=== PATIENT | male | born 1980 | race Caucasian/White ===

== ENCOUNTER → 2016-12-15 | Outpatient (CLI) | payer OTHER ==
[~2016-12-15] MED LIST: ATEN-173 PO; BCTROWC EXT; CHOL100041 PO; DICY20TA10 PO; ESCI10TA17 PO; LORA-741 PO; METHADONE LIQUID PO; OMEP20CA9 PO; ONDA4TAB65 PO; POLY335025 PO
[2016-12-15 17:55] LABS: URINE APPEARANCE CLEAR (CLEAR); URINE BILIRUBIN NEG (NEG); URINE COLOR YELLOW; URINE NITRITE NEG (NEG); URINE SPECIFIC GRAVITY 1.009 (1.000-1.030); UROBILINOGEN NEG (NEG)
[2016-12-15 17:56] LABS: MANUAL MICROSCOPIC REQUIRED? NO; REVIEW REQ? NO
== END | disposition home or self-care (01) ==
LOC: C.LABBFT 11:58
PROVIDERS: ATTEND Psychiatry & Neurology Psychiatry
DX: F90.9 Attention-deficit hyperactivity disorder, unspecified type (principal)

== ENCOUNTER → 2016-12-16 | Outpatient (CLI) | payer OTHER ==
[2016-12-16 17:46] LABS: BASO % 0.3 %; BASO ABS # 0.02 K/uL (0-0.2); COMPLETE YES; EOS % 2.2 %; HEMATOCRIT 45.5 % (42-52); IG% 0.2 %; LYMPH % 29.6 %; LYMPH ABS # 1.86 K/uL (1.2-3.4); MEAN CORPUSCULAR HEMOGLOBIN 30.2 pg (25-34); MEAN CORPUSCULAR HGB CONC 34.7 g/dl (32-36); MEAN PLATELET VOLUME 11.7 fL (7.4-10.4); MONO % 7.8 %; NEUT % 59.9 %; PLATELET COUNT 141 K/uL (130-400); RED BLOOD COUNT 5.23 M/uL (4.7-6.1); WHITE BLOOD COUNT 6.29 K/uL (4.8-10.8)
[2016-12-16 17:50] LABS: ALT/SGPT 24 U/L (12-78); AST/SGOT 22 U/L (15-37); BLOOD UREA NITROGEN 9 mg/dl (7-18); BUN/CREATININE RATIO 8.8 (10-20); CARBON DIOXIDE 26 mmol/L (21-32); CHLORIDE 106 mmol/L (98-107); CHOLESTEROL 189 mg/dl (0-200); CREATININE 0.98 mg/dl (0.60-1.40); GLUCOSE 77 mg/dl (70-99); POTASSIUM 4.1 mmol/L (3.5-5.1); SODIUM 139 mmol/L (136-145)
[2016-12-16 17:56] LABS: BENZODIAZEPINE, URINE NEG (NEG); COCAINE,URINE NEG (NEG); PHENCYCLIDINE, URINE NEG (NEG)
[2016-12-16 18:02] LABS: ALB/GLOB RATIO 1.1 (0.9-2); ALKALINE PHOSPHATASE 114 U/L (45-117); CHOLESTEROL/HDL RATIO 5.3; HDL CHOLESTEROL 36 mg/dl; LDL CHOLESTEROL CALCULATED 125 mg/dl; TRIGLYCERIDES 142 mg/dl (0-150); VERY LOW DENSITY LIPOPROT CALC 28 mg/dl
[2016-12-17 06:06] LABS: ESTIMATED AVERAGE GLUCOSE 94 mg/dl; HA1C FLAG Normal (Normal)
[2016-12-22 07:02] LABS: METHADONE METABOLITE 16600 NG/ML (CUTOFF=100); METHADONE VERIFIC 1700 NG/ML (CUTOFF=100)
--- NOTE | 2016-12-23 10:56 | CODING QUERY MEDICAL NECESSITY ---
SUPPORTING DIAGNOSIS NEEDED A supporting diagnosis is required for the test/procedure performed on this patient in order for us to be reimbursed by the patient's insurance. Please provide a supporting diagnosis for the following test/procedure listed below next to the test name along with your signature. *If there is no additional diagnosis for this patient that would support the following test/procedure please document that below next to the test/procedure. Test(s)/Procedure(s) that require a supporting diagnosis: * HEMOGLOBIN A1C DIAGNOSIS: Provider Signature: Date: Thank you Adilene Valladares [employer] Information Management Once completed, please kindly fax back to [phone] For questions please call [phone]
== END | disposition home or self-care (01) ==
LOC: C.LABBFT 11:46
PROVIDERS: ATTEND Psychiatry & Neurology Psychiatry
DX: F90.9 Attention-deficit hyperactivity disorder, unspecified type (principal)

== ENCOUNTER 2017-03-06 11:53 | Emergency (ER) | payer OTHER ==
[~2017-03-06] VITALS: Ht 165.1 cm; Wt 71.1 kg
[~2017-03-06 11:53] MED LIST changes: -METH10CO2 PO
[2017-03-06 12:00] VITALS: Ht 165.1 cm; Wt 71.1 kg
[2017-03-06] MEDS ORDERED: METH10CO2 PO (12:08)
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
[2017-03-06 12:40] LABS: BASO % 0.3 %; BASO ABS # 0.02 K/uL (0-0.2); EOS % 2.1 %; EOS ABS # 0.17 K/uL (0-0.5); HEMATOCRIT 37.7 % (42-52); HEMOGLOBIN 12.9 g/dL (14.0-18.0); IG# 0.02 K/uL (0.00-0.02); LYMPH % 19.5 %; LYMPH ABS # 1.55 K/uL (1.2-3.4); MEAN CELL VOLUME 87.1 fL (80-100); MEAN CORPUSCULAR HEMOGLOBIN 29.8 pg (25-34); MEAN CORPUSCULAR HGB CONC 34.2 g/dl (32-36); MONO % 6.3 %; NEUT % 71.5 %; NEUT ABS # 5.67 K/uL (1.4-6.5); PLATELET COUNT 144 K/uL (130-400); RED CELL DISTRIBUTION WIDTH CV 13.3 % (11.5-14.5); RED CELL DISTRIBUTION WIDTH SD 42.9 fL (36.4-46.3); WHITE BLOOD COUNT 7.93 K/uL (4.8-10.8)
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
[2017-03-06 12:56] LABS: ISTAT IONIZED CALCIUM 1.14 mmol/l (1.12-1.32); ISTAT SODIUM 144 mEq/L (135-144)
[2017-03-06 13:10] LABS: ALBUMIN 3.6 gm/dl (3.4-5.0); CALCIUM 8.6 mg/dl (8.5-10.1); CREATININE 1.02 mg/dl (0.60-1.40); TOTAL PROTEIN 6.5 gm/dl (6.4-8.2)
[2017-03-06 13:48] LABS: POTASSIUM 3.3 mmol/L (3.5-5.1)
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
[2017-03-06] MEDS ORDERED: FENTANYL CITRATE INJ 50 MCG/1 ML 2 ML VIAL ONE (14:53)
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
[2017-03-06] MEDS ORDERED: FENTANYL CITRATE INJ 50 MCG/1 ML 2 ML VIAL IV PRN (17:00)
[2017-03-06 17:31] VITALS: BP 129/86; PULSE 81; TEMP 36.6; O2SAT 95
== END 2017-03-06 17:15 | disposition short-term general hospital (02) ==
LOC: EDBD 11:53 → C.EDB 11:54
DX: S72.351A Displaced comminuted fracture of shaft of right femur, initial encounter for closed fracture (principal); S82.031A Displaced transverse fracture of right patella, initial encounter for closed fracture; S22.31XA Fracture of one rib, right side, initial encounter for closed fracture; V49.40XA Driver injured in collision with unspecified motor vehicles in traffic accident, initial encounter; M54.2 Cervicalgia; I10 Essential (primary) hypertension; F17.200 Nicotine dependence, unspecified, uncomplicated; R40.2412 Glasgow coma scale score 13-15, at arrival to emergency department; Z79.891 Long term (current) use of opiate analgesic; Z83.79 Family history of other diseases of the digestive system

== ENCOUNTER → 2017-03-06 | Outpatient (CLI) | payer OTHER ==
[~2017-03-06] MED LIST changes: +METH10CO2 PO
== END | disposition home or self-care (01) ==
LOC: C.LAB 13:06
DX: Z02.83 Encounter for blood-alcohol and blood-drug test (principal)

== ENCOUNTER 2021-05-15 10:51 | Inpatient (IN) ==
[2021-05-15] MEDS ORDERED: LORazepam 2 MG/1 ML VIAL IV STA ×2 (11:12→19:43)
--- NOTE | 2021-05-15 11:16 | Emergency Department Note ---
History of Present Illness General Chief complaint: Chest Pain Stated complaint: L SIDE CHEST PAIN, CAN'T GET GET FULL BREATH Time Seen by Provider: 05/15/21 11:00 History of Present Illness Maximum Pain Intensity: 7 40-year-old male presents to the ED with a chief complaint of sudden onset of a stabbing retrosternal chest pain that radiates to the left that occurred around 1030 this morning while he was sitting in a car. The patient states that it seemed to be worse if he would take a full breath. He states that it currently is dull in nature. Did not anything for the symptoms. States that he feels a little anxious. He is chronically on methadone. His aortic valve repair with a nonmetallic valve. Does not require anticoagulation. Home Medications Medication Instructions Recorded Confirmed Type aspirin 81 mg tablet,delayed 81 mg PO .ONCE 05/15/21 05/15/21 History release atenolol 25 mg tablet 12.5 mg PO QAM 05/15/21 05/15/21 History buspirone 10 mg tablet 10 mg PO TID 05/15/21 05/15/21 History escitalopram oxalate 20 mg tablet 20 mg PO HS 05/15/21 05/15/21 History ferrous sulfate 325 mg (65 mg 325 mg PO QAM 05/15/21 05/15/21 History iron) tablet (FeroSul) hydroxyzine HCl 25 mg tablet 25 mg PO TID 05/15/21 05/15/21 History promethazine 25 mg tablet 25 mg PO .ONCE 05/15/21 05/15/21 History quetiapine 100 mg tablet 100 mg PO BID 05/15/21 05/15/21 History quetiapine 25 mg tablet 25 mg PO BID 05/15/21 05/15/21 History Allergies Allergy/AdvReac Type Severity Reaction Status Date / Time codeine Allergy Severe SHORTNESS Verified 05/15/21 12:45 OF BREATH ketorolac Allergy Mild RAPID Verified 05/15/21 12:45 BREATHING morphine Allergy Mild FEELING Verified 05/15/21 12:45 ANXIOUS Iodinated Contrast Media Allergy Unknown RASH-CAN Verified 05/15/21 12:45 EAT SHELLFISH Past Med/Surg History Medical History Esophageal atresia Polysubstance abuse Surgical History Heart valve replaced History of esophageal surgery History of testicular surgery Social History Smoking Status: Current every day smoker Tobacco Type: Cigarettes Preferred Language: Citizen Of [place] Feels Safe at Home: Yes Review of Systems A total of 10 systems reviewed and were otherwise negative Physical Exam Vital Signs Vital Signs - 24 hr 05/15/21 10:54 05/15/21 11:10 05/15/21 11:55 Temperature 36.3 C L Temperature Source Temporal Artery Scan Pulse Rate 94 H Pulse Rate [Apical] 83 Respiratory Rate 16 18 Blood Pressure 145/88 H Blood Pressure [Right Arm] 138/99 Blood Pressure Mean 107 Blood Pressure Mean [Right Arm] 112 Pulse Oximetry 97 95 Oxygen Delivery Method Room Air Room Air Room Air Sepsis Recent Fever Within 48 Hours No Sepsis New/Unexplained Change in Mental Status No Sepsis Action Taken by Nursing No Action Required 05/15/21 13:00 Temperature Temperature Source Pulse Rate Pulse Rate [Apical] 85 Respiratory Rate 18 Blood Pressure Blood Pressure [Right Arm] 146/88 H Blood Pressure Mean Blood Pressure Mean [Right Arm] 107 Pulse Oximetry 95 Oxygen Delivery Method Room Air Sepsis Recent Fever Within 48 Hours Sepsis New/Unexplained Change in Mental Status Sepsis Action Taken by Nursing CONSTITUTIONAL/VITAL SIGNS: Reviewed / noted above. GENERAL: Non-toxic in appearance. INTEGUMENTARY: Warm, dry, and [place]. HEAD: Normocephalic. EYES: without scleral icterus or trauma. ENT/OROPHARYNX: clear and moist. LYMPHADENOPATHY/NECK: Is supple without lymphadenopathy or meningismus. RESPIRATORY: Clear to auscultation bilaterally. No increased work of breathing. CARDIOVASCULAR: Regular rate and rhythm. Sternal scar from previous surgery. Systolic ejection murmur. GI/ABDOMEN: Soft and nontender. No organomegaly or pulsatile mass. EXTREMITIES: Warm and well perfused. No calf tenderness. BACK: No CVA tenderness. NEUROLOGICAL: Intact without focal deficits. PSYCHIATRIC: normal affect. MUSCULOSKELETAL: Normally developed with good muscle tone. TRIAGE NURSING DOCUMENTATION REVIEWED. Course Administered Medications Discontinued Medications Lorazepam (Lorazepam 2 Mg/1 Ml Vial) 0.5 mg IV NOW STA Stop: 05/15/21 11:13 Last Admin: 05/15/21 11:25 Dose: 0.5 mg Documented by: [id number] Medical Decision Making Differential Diagnosis The differential that was considered includes acute myocardial infarction, acute coronary syndrome, myocarditis, pericarditis, pericardial effusions /tamponade, esophageal perforation, thoracic aortic dissection, pulmonary embolism, pneumonia, pneumothorax, pancreatitis, shingles, acute cholecystitis, perforated abdominal viscus. Medical Records Attestation: I reviewed the patient's medical records. Home Medications Current Medication List: was personally reviewed by me Laboratory Data Attestation: I reviewed the patient's lab results. Result diagrams: 05/15/21 11:09 05/15/21 11:09 Lab Results 05/15/21 05/15/21 Range/Units 11:09 11:09 WBC 7.65 (4.8-10.8) K/uL RBC 4.59 L (4.7-6.1) M/uL Hgb 14.6 (14.0-18.0) g/dL Hct 41.5 L (42-52) % MCV 90.4 (80-100) fL MCH 31.8 (25-34) pg MCHC 35.2 (32-36) g/dL RDW Std Deviation 42.9 (36.4-46.3) fL RDW Coeff of Cheri 12.9 (11.5-14.5) % Plt Count 134 (130-400) K/uL MPV 12.3 H (7.4-10.4) fL Immature Gran % (Auto) 0.1 % Neut % (Auto) 69.8 % Lymph % (Auto) 20.5 % [place] % (Auto) 7.7 % Eos % (Auto) 1.8 % Baso % (Auto) 0.1 % Neut # (Auto) 5.33 (1.4-6.5) K/uL Lymph # (Auto) 1.57 (1.2-3.4) K/uL [place] # (Auto) 0.59 (0.11-0.59) K/uL Eos # (Auto) 0.14 (0-0.5) K/uL Baso # (Auto) 0.01 (0-0.2) K/uL Immature Gran # (Auto) 0.01 (0.00-0.02) K/uL Sodium 140 (136-145) mmol/L Potassium 3.5 (3.5-5.1) mmol/L Chloride 105 (98-107) mmol/L Carbon Dioxide 29 (21-32) mmol/L Anion Gap 6 (3-11) BUN 5 L (6-23) mg/dl Creatinine 0.88 (0.6-1.4) mg/dl Est Cr Clr Drug Dosing 97.1 ml/min Est GFR ( Amer) 124.5 ml/min Est GFR (Non-Af Amer) 107.5 ml/min BUN/Creatinine Ratio 5.7 L (10-20) Glucose 97 (70-99(Fasting)) mg/dl Calcium 9.6 (8.5-10.1) mg/dl Total Bilirubin 0.9 (0.2-1.0) mg/dl AST 36 (13-39) U/L ALT 19 (7-52) U/L Alkaline Phosphatase 93 (34-104) U/L Troponin I < 0.03 (0-0.04) ng/ml Total Protein 7.7 (6.0-8.3) gm/dl Albumin 4.7 (3.4-5.0) gm/dl Globulin 3.0 (2.5-4.0) gm/dl Albumin/Globulin Ratio 1.6 (0.9-2) Lipase 74 (11-82) U/L Imaging Data Radiologist's Impression: Chest X-Ray 05/15/21 11:10 XR chest 1V portable CLINICAL HISTORY: Atypical chest pain TECHNIQUE: Single frontal radiograph of the chest was obtained. Comparison: Comparison is made to rib series 06/11/2019 FINDINGS: Median sternotomy wires are unchanged. The cardiomediastinal silhouette is normal. The lungs are clear. No evidence of pleural effusion or pneumothorax. IMPRESSION: No acute chest disease. ACT 112: Negative or not required by law. Electronically signed by: Branden Hart M.D. 05/15/2021 11:40 AM ECG Data Attestation: I personally reviewed and interpreted this ECG as follows: Additional Comments: Twelve-lead EKG: Per my interpretation shows a sinus rhythm at a rate of 82. T wave inversions in aVR and aVL. No ST elevation. No PVCs. No significant change from June 2020 MDM Narrative 40-year-old male presents with a sudden onset of sharp retrosternal chest pain that radiates to the left and was worse with breathing. No leg pain or calf tenderness or swelling in the legs. Now describes as a dull pressure. This occurred about 45 minutes to an hour prior to arrival while he was sitting in a car. Twelve-lead EKG shows a sinus rhythm and appears similar to previous EKG. Chest x-ray was negative for acute disease. CBC and chemistry panel was normal as well a troponin was negative. The patient was told the results. I did speak with Dr. Paula, patient's lithographic proofer, about the patient. He is going to talk to the hospitalist about bringing the patient in for a cardiac cath ayla tennille. The patient was given some IV Ativan here for anxiety. He does have a methadone dependency. Impression & Plan Retrosternal chest pain Discharge Plan Visit Data Chief Complaint: Chest Pain Stated Complaint: L SIDE CHEST PAIN, CAN'T GET GET FULL BREATH ED Provider: Anand Danielson Discharge Problem: Retrosternal chest pain Forms Stand Alone Forms: My [facility] Prescriptions Prescriptions: No Action quetiapine 25 mg tablet 25 mg PO BID RF: 0 atenolol 25 mg tablet 12.5 mg PO QAM RF: 0 aspirin [Aspir-81] 81 mg Tablet,Delayed Release (Dr/Ec) 81 mg PO .ONCE RF: 0 quetiapine 100 mg tablet 100 mg PO BID RF: 0 ferrous sulfate [FeroSul] 325 mg (65 mg iron) tablet 325 mg PO QAM RF: 0 buspirone 10 mg tablet 10 mg PO TID RF: 0 promethazine [Phenergan] 25 mg Tablet 25 mg PO .ONCE RF: 0 hydroxyzine HCl 25 mg tablet 25 mg PO TID RF: 0 escitalopram oxalate 20 mg tablet 20 mg PO HS RF: 0 Referrals Referrals: Janell De La Fuente DO [Primary Care Provider] -
[2021-05-15 11:17] LABS: Basophils # (auto) 0.01 K/uL (0-0.2); Basophils % (auto) 0.1 %; Eosinophils # (auto) 0.14 K/uL (0-0.5); Eosinophils % (auto) 1.8 %; Hematocrit (blood only) 41.5 % (42-52); Hemoglobin 14.6 g/dL (14.0-18.0); Immature Granulocytes # (auto) 0.01 K/uL (0.00-0.02); Immature Granulocytes % (auto) 0.1 %; Lymphocytes # (auto) 1.57 K/uL (1.2-3.4); Lymphocytes % (auto) 20.5 %; Mean Corpuscular Hemoglobin 31.8 pg (25-34); Mean Corpuscular Hgb Conc 35.2 g/dL (32-36); Mean Corpuscular Volume 90.4 fL (80-100); Mean Platelet Volume 12.3 fL (7.4-10.4); Monocytes # (auto) 0.59 K/uL (0.11-0.59); Monocytes % (auto) 7.7 %; Neutrophils # (auto) 5.33 K/uL (1.4-6.5); Neutrophils % (auto) 69.8 %; Platelet Count 134 K/uL (130-400); RDW Coefficient of Variation 12.9 % (11.5-14.5); RDW Standard Deviation 42.9 fL (36.4-46.3); Red Blood Count 4.59 M/uL (4.7-6.1); White Blood Count 7.65 K/uL (4.8-10.8)
--- NOTE | 2021-05-15 11:42 | XRay Report ---
XR chest 1V portable CLINICAL HISTORY: Atypical chest pain TECHNIQUE: Single frontal radiograph of the chest was obtained. Comparison: Comparison is made to rib series 06/11/2019 FINDINGS: Median sternotomy wires are unchanged. The cardiomediastinal silhouette is normal. The lungs are chevy r. No evidence of pleural effusion or pneumothorax. IMPRESSION: No acute chest disease. ACT 112: Negative or not required by law. Electronically signed by: Branden Hart M.D. 05/15/2021 11:40 AM
[2021-05-15 11:45] LABS: Alanine Aminotransferase 19 U/L (7-52); Albumin Globulin Ratio 1.6 (0.9-2); Albumin Level 4.7 gm/dl (3.4-5.0); Alkaline Phosphatase 93 U/L (34-104); Anion Gap 6 (3-11); Aspartate Aminotransferase 36 U/L (13-39); BUN Creatinine Ratio 5.7 (10-20); Bilirubin,Total 0.9 mg/dl (0.2-1.0); Blood Urea Nitrogen 5 mg/dl (6-23); Calcium 9.6 mg/dl (8.5-10.1); Carbon Dioxide 29 mmol/L (21-32); Chloride 105 mmol/L (98-107); Creatinine Clr Calc Pharmacy 97.1 ml/min; Est GFR (African American) 124.5 ml/min; Est GFR (Non-African American) 107.5 ml/min; Glucose 97 mg/dl (70-99(Fasting)); Lipase 74 U/L (11-82); Potassium 3.5 mmol/L (3.5-5.1); Sodium 140 mmol/L (136-145); Total Protein 7.7 gm/dl (6.0-8.3)
[2021-05-15 11:48] LABS: Troponin I < 0.03 ng/ml (0-0.04)
[2021-05-15] MEDS ORDERED: LORazepam 1 MG TAB PO STA (13:42)
--- NOTE | 2021-05-15 14:37 | Cardiology Consultation ---
Date of Consultation May 15, 2021 Assessment & Plan (1) Prosthetic aortic valve stenosis: (2) Contrast media allergy: (3) Opioid dependence: (1) Prosthetic aortic valve stenosis: Patient presents with progressive chest discomfort and shortness of breath, similar to the symptoms that prompted the recent diagnosis of severe prosthetic aortic valve stenosis, but more pronounced today. Patient does have a history of ascending aorta dilatation, with surgical repair at the time of his initial surgery in 2004, minimal residual dilatation noted at time of most recent CT in 2014. I do not think his symptoms are characteristic of an aortic dissection. Blood pressure only minimally elevated at 146/88. Patient was tentatively scheduled for diagnostic coronary angiography to be performed in 5 days, with planned outpatient CT surgery consultation to discuss surgical AVR soon thereafter. Patient to be admitted to telemetry service, will proceed with diagnostic coronary angiography tomorrow. (2) Contrast media allergy: History of rash with iodine contrast, therefore requires prophylaxis. Patient to receive prednisone 50 mg, x3 doses in advance of contrast administration. Plan for prednisone 50 mg this evening at 6 PM, 11 PM, 6 AM, with anticipation of procedure start time between 730 and 8:30 AM. Plan for diphenhydramine 25 mg, 6 AM tomorrow. (3) Opioid dependence: Continue outpatient treatment with Seroquel methadone as per outpatient regimen. Followed by [facility]. One-time dose of Ativan ordered at time of my evaluation of patient in the emergency room. History of Present Illness History of Present Illness Mr Cid is a 40-year-old male seen in cardiology consultation per the request of Dr. Danielson for the evaluation of chest discomfort. 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 He presents today complaining of onset of chest discomfort 1030 this morning with associated sensation of inability to catch his breath, he had had these symptoms recently, but this time the symptoms had persisted, prompting pr esentation to the emergency room. EKG reveals sinus rhythm, LVH, age-indeterminate septal infarction pattern, unchanged compared to his previous recent outpatient tracing, troponin negative x1. Patient assessed by the undersigned twice in the emergency room, and on the second occasion, still has mild ongoing discomfort. Problem List: 1.Status post redo AVR with a 21mm Trifecta bioprosthetic valve, pericardial closure with CorMatrix 07/20/14, [facility], Dr Mays 2.Status post bioprosthetic AVR and ascending aortic replacement for Severe of a bicuspid valve and ascending aortic enlargement in 2004 3.Chronic tobacco abuse-1/2 pack per day 4.Iodinated contrast reaction, rash, respiratory distress, nausea vomiting after CT in past 5.H/o narcotic addition, on chronic methadone 6.Angiographically normal coronary arteries, pre opcardiac catheterization, [facility], Dr Kam, 05/[address], 2014, maximum dimension ascending aorta 3.7 centimeter Allergies Allergy/AdvReac Type Severity Reaction Status Date / Time codeine Allergy Severe SHORTNESS Verified 05/15/21 12:45 OF BREATH ketorolac Allergy Mild RAPID Verified 05/15/21 12:45 BREATHING morphine Allergy Mild FEELING Verified 05/15/21 12:45 ANXIOUS Iodinated Contrast Media Allergy Unknown RASH-CAN Verified 05/15/21 12:45 EAT SHELLFISH Home Medications Medication Instructions Recorded Confirmed Type aspirin 81 mg tablet,delayed 81 mg PO .ONCE 05/15/21 05/15/21 History release atenolol 25 mg tablet 12.5 mg PO QAM 05/15/21 05/15/21 History buspirone 10 mg tablet 10 mg PO TID 05/15/21 05/15/21 History escitalopram oxalate 20 mg tablet 20 mg PO HS 05/15/21 05/15/21 History ferrous sulfate 325 mg (65 mg 325 mg PO QAM 05/15/21 05/15/21 History iron) tablet (FeroSul) hydroxyzine HCl 25 mg tablet 25 mg PO TID 05/15/21 05/15/21 History promethazine 25 mg tablet 25 mg PO .ONCE 05/15/21 05/15/21 History quetiapine 100 mg tablet 100 mg PO BID 05/15/21 05/15/21 History quetiapine 25 mg tablet 25 mg PO BID 05/15/21 05/15/21 History Patient History Medical History Esophageal atresia Polysubstance abuse Surgical History Heart valve replaced History of esophageal surgery History of testicular surgery Social History Smoking Status: Current every day smoker Tobacco Type: Cigarettes Preferred Language: [place] Feels Safe at Home: Yes Review of Systems Review of Systems: All systems reviewed & are unremarkable except as noted in HPI & below Physical Exam Constitutional: + thin Respiratory: normal respiratory effort, lungs clear to auscultation Cardiovascular: Rate/Rhythm: regular rhythm Heart Sounds: + murmur (3/6 systolic murmur, sternal border, lower sternal border) Gastrointestinal (Abdomen): normal bowel sounds, soft, nontender, no hepatosplenomegaly Neurologic: PERRL, EOMI, accommodation nl, no face palsy, no dysarthria Results & Data ([facility]) Vital Signs (Past 12 Hours) Vital Signs Temp Pulse Pulse Resp BP BP Pulse Ox 05/15/21 13:00 85 18 146/88 H 95 05/15/21 11:55 83 18 138/99 95 05/15/21 10:54 36.3 C L 94 H 16 145/88 H 97 Laboratory Results Cardiac Enzymes 05/15/21 Range/Units 11:09 AST 36 (13-39) U/L Troponin I < 0.03 (0-0.04) ng/ml CBC 05/15/21 Range/Units 11:09 WBC 7.65 (4.8-10.8) K/uL RBC 4.59 L (4.7-6.1) M/uL Hgb 14.6 (14.0-18.0) g/dL Hct 41.5 L (42-52) % Plt Count 134 (130-400) K/uL Neut # (Auto) 5.33 (1.4-6.5) K/uL Lymph # (Auto) 1.57 (1.2-3.4) K/uL [place] # (Auto) 0.59 (0.11-0.59) K/uL Eos # (Auto) 0.14 (0-0.5) K/uL Baso # (Auto) 0.01 (0-0.2) K/uL Comprehensive Metabolic Panel 05/15/21 Range/Units 11:09 Sodium 140 (136-145) mmol/L Potassium 3.5 (3.5-5.1) mmol/L Chloride 105 (98-107) mmol/L Carbon Dioxide 29 (21-32) mmol/L BUN 5 L (6-23) mg/dl Creatinine 0.88 (0.6-1.4) mg/dl Glucose 97 (70-99(Fasting)) mg/dl Calcium 9.6 (8.5-10.1) mg/dl AST 36 (13-39) U/L ALT 19 (7-52) U/L Alkaline Phosphatase 93 (34-104) U/L Total Protein 7.7 (6.0-8.3) gm/dl Albumin 4.7 (3.4-5.0) gm/dl Diagnostic Findings Summary of recent transthoracic echocardiogram performed at [facility] 05/01/2021: The left ventricular cavity size is normal. The LV wall thickness is severely increased (concentric). There is an aortic valve bioprosthetic present. Bioprosthetic leaflets in limited views seen appear significantly thickened and restricted in mobility. Prosthetic valve gradients are consistent with severe prosthetic stenosis with peak valve velocity of 4.7 m/sec. These findings represent progression from prior study of September 26, 2019 EKG performed 05/15/2021 at 10:59 AM and reviewed independently: Normal sinus rhythm 82 bpm, septal infarction, present dating back to 2013, nonspecific repolarization changes, stable EKG findings compared to prior.
--- NOTE | 2021-05-15 15:29 | History & Physical Report ---
Date of Service May 15, 2021 Assessment & Plan (1) Prosthetic aortic valve stenosis: (2) Retrosternal chest pain: (3) Contrast media allergy: Plan: Admitted telemetry Patient presenting from home with reports of midsternal chest pain. History of aortic valve stenosis s/p bioprosthetic replacement x2 in 2004 and 2014. 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 In the ED, patient received Ativan with improvement in his symptoms. EKG abnormal however unchanged from prior, initial troponin negative Was tentatively planned for outpatient preop cardiac catheterization in the next few days, cath will be moved to tomorrow Due to contrast dye allergy, prednisone and diphenhydramine ordered per cardiology recommendations (4) Opioid dependence: Plan: On methadone, dose confirmed with clinic ([facility]) (5) HTN (hypertension): Plan: Continue atenolol (6) DVT prophylaxis: Plan: SCDs History of Present Illness Chief Complaint: Chest Pain Primary Care Provider: [facility] 40 year old male with PMH bicuspid aortic valve s/p replacement x 2 (in 2004 and 2014), HTN, opioid abuse on methadone therapy, hx of esophageal atresia s/p repair as an infant, HTN, and other problems listed below who presents to the ED for evaluation of chest pain. 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 Patient states that he was sitting in his car this morning when he had sudden onset of a midsternal chest pain that radiated over to the left side of his chest. States that he was unable to take a deep breath. Patient reports episodes of chest pain in the past however not this severe. Patient denies lightheadedness, dizziness, diaphoresis, syncopal events. No abdominal pain, nausea, vomiting, diarrhea. Denies any other recent illnesses, fevers, chills. No urinary symptoms. In the ED, EKG is abnormal however unchanged from prior. Initial troponin is negative. Patient is hemodynamically stable. Patient received Ativan with improvement in his symptoms. Allergies Allergy/AdvReac Type Severity Reaction Status Date / Time codeine Allergy Severe SHORTNESS Verified 05/15/21 12:45 OF BREATH ketorolac Allergy Mild RAPID Verified 05/15/21 12:45 BREATHING morphine Allergy Mild FEELING Verified 05/15/21 12:45 ANXIOUS Iodinated Contrast Media Allergy Unknown RASH-CAN Verified 05/15/21 12:45 EAT SHELLFISH Home Medications Medication Instructions Recorded Confirmed Type atenolol 25 mg tablet 12.5 mg PO QAM 05/15/21 05/15/21 History buspirone 10 mg tablet 10 mg PO TID 05/15/21 05/15/21 History escitalopram oxalate 20 mg tablet 20 mg PO HS 05/15/21 05/15/21 History ferrous sulfate 325 mg (65 mg 325 mg PO QAM 05/15/21 05/15/21 History iron) tablet (FeroSul) hydroxyzine HCl 25 mg tablet 25 mg PO TID PRN 05/15/21 05/15/21 History methadone 5 mg/5 mL oral solution 59 mg PO DAILY 05/15/21 05/15/21 History multivitamin 1 tab PO DAILY 05/15/21 05/15/21 History omeprazole 20 mg capsule,delayed 20 mg PO BID 05/15/21 05/15/21 History release quetiapine 100 mg tablet 100 mg PO BID 05/15/21 05/15/21 History quetiapine 25 mg tablet 25 mg PO BID 05/15/21 05/15/21 History Past Med/Surg History Medical History Bicuspid aortic valve Contrast media allergy Esophageal atresia H. pylori infection HTN (hypertension) Polysubstance abuse hx of, on methadone Surgical History History of esophageal surgery History of testicular surgery S/P aortic valve replacement with bioprosthetic valve x 2 in 2004 and 2014 Family History Other Leukemia Social History Smoking Status: Current every day smoker Tobacco Type: Cigarettes Hx Alcohol Use: No Preferred Language: [place]an Feels Safe at Home: Yes Review of Systems Review of Systems: ROS per HPI, all other systems reviewed and negative Physical Exam Constitutional: WD/WN, vitals as above Eyes: PERRL, conjunctivae normal, anicteric sclerae ENMT: external ear and nose normal, oropharynx normal Respiratory: normal respiratory effort, lungs clear to auscultation Cardiovascular: Rate/Rhythm: regular rate and regular rhythm Heart Sounds: + murmur (Systolic, grade 5/6) Vessels: normal peripheral pulses Extremities: no edema Gastrointestinal (Abdomen): normal bowel sounds, soft, nontender, no hepatosplenomegaly Musculoskeletal: no cyanosis or clubbing, extremities motor strength 5/5 Skin: no rashes, warm and dry Neurologic: PERRL, EOMI, accommodation nl, no face palsy, no dysarthria Psychiatric: A+Ox3, euthymic affect Results & Data Results & Data ([facility]) Vital Signs (Past 12 Hours) Vital Signs Temp Pulse Pulse Resp BP BP Pulse Ox 05/15/21 15:00 83 12 115/96 96 05/15/21 13:00 85 18 146/88 H 95 05/15/21 11:55 83 18 138/99 95 05/15/21 10:54 36.3 C L 94 H 16 145/88 H 97 Laboratory Results Short CBC 05/15/21 Range/Units 11:09 WBC 7.65 (4.8-10.8) K/uL Hgb 14.6 (14.0-18.0) g/dL Hct 41.5 L (42-52) % Plt Count 134 (130-400) K/uL BMP 05/15/21 11:09 Sodium 140 Potassium 3.5 Chloride 105 Carbon Dioxide 29 BUN 5 L Creatinine 0.88 Glucose 97 Calcium 9.6 Cardiac Enzymes 05/15/21 Range/Units 11:09 Troponin I < 0.03 (0-0.04) ng/ml Liver Function 05/15/21 Range/Units 11:09 Total Bilirubin 0.9 (0.2-1.0) mg/dl AST 36 (13-39) U/L ALT 19 (7-52) U/L Alkaline Phosphatase 93 (34-104) U/L Albumin 4.7 (3.4-5.0) gm/dl Diagnostic Findings Chest X-Ray 05/15/21 11:10 XR chest 1V portable CLINICAL HISTORY: Atypical chest pain TECHNIQUE: Single frontal radiograph of the chest was obtained. Comparison: Comparison is made to rib series 06/11/2019 FINDINGS: Median sternotomy wires are unchanged. The cardiomediastinal silhouette is normal. The lungs are clear. No evidence of pleural effusion or pneumothorax. IMPRESSION: No acute chest disease. ACT 112: Negative or not required by law. Electronically signed by: Branden Hart M.D. 05/15/2021 11:40 AM Code Status & VTE Plan VTE Prophylaxis Plan VTE Prophylaxis will be ordered: Yes Supervising Physician Co-Signing Physician Notes Attending addendum: The patient was seen and examined in emergency room He has history of aortic valve stenosis s/p bioprosthetic replacement x2 in 2004 and 2014 Has been complaining of chest pain with occasional shortness of breath off and on Has had severe chest pain this morning without any evidence of ACS at pres entation Denies any acute symptoms during my examination On examination No apparent distress at rest Hemodynamically stable Chestclear to auscultate bilaterally HeartS1-S2, regular, 3/6 ESM over precordium, apex and aortic area Abdomenbenign Extremitiesno edema CNSalert, awake and oriented x3 His admission labs, EKG and imaging studies reviewed Has prosthetic aortic valve stenosis with ongoing chest pain Appreciate cardiology input and recommendation for cardiac cath tomorrow Agree with assessment and plan as outlined above by Mariah Silver
--- NOTE | 2021-05-15 17:00 | Electrocardiogram Report ---
Test Reason : Blood Pressure : / mmHG Vent. Rate : 082 BPM Atrial Rate : 082 BPM P-R Int : 156 ms QRS Dur : 094 ms QT Int : 408 ms P-R-T Axes : 071 -72 088 degrees QTc Int : 476 ms Poor data quality, interpretation may be adversely affected Normal sinus rhythm Possible Left atrial enlargement Left axis deviation Poor R wave progression, consider anterior OH vs. lead placement vs. LVH Abnormal ECG When compared with ECG of 01-JUL-2020 19:50, Non-specific change in ST segment in Anterior leads T wave inversion no longer evident in Anterior leads Confirmed by Abran Montejo ([id number]) on 05/15/2021 5:00:34 PM Referred By: REFERRED SELF Confirmed By:Eliazar Montejo
[2021-05-15] MEDS ORDERED: ACETAMINOPHEN 325 MG TAB PO PRN (18:19)
[2021-05-15] MEDS ORDERED: LORazepam 1 MG TAB PO PRN (18:19)
[2021-05-15] MEDS: predniSONE 50 MG TAB PO SCH (20:23)
[2021-05-15] MEDS: QUEtiapine FUMARATE 100 MG TABLET PO SCH (20:24)
[2021-05-15] MEDS: QUEtiapine FUMARATE 25 MG TABLET PO SCH (20:25)
[2021-05-15] MEDS: busPIRone 5 MG TAB PO SCH (20:26)
[2021-05-15] MEDS: PANTOprazole 40 MG TAB PO SCH (20:26)
[2021-05-15] MEDS ORDERED: ESCITALOPRAM OXALATE 20 MG TAB PO SCH (21:00)
[2021-05-15] MEDS ORDERED: predniSONE 50 MG TAB PO SCH (23:00)
[2021-05-16] MEDS: predniSONE 50 MG TAB PO SCH ×2 (00:31→06:48)
[2021-05-16] MEDS ORDERED: diphenhydrAMINE Capsule 25 MG CAP PO ONE (06:00)
[2021-05-16] MEDS ORDERED: MIDAZOLAM HCL 1 MG/ML 2ML VIAL ONE (06:44)
[2021-05-16] MEDS ORDERED: HEPARIN (PORCINE) 1000 UNIT/ML 10 ML (CATH LAB USE ONLY) ONE (06:44)
[2021-05-16] MEDS ORDERED: niCARdipine HCL INJ 2.5 MG/ML 10 ML AMP ONE (06:44)
[2021-05-16] MEDS ORDERED: fentaNYL citrate 100 MCG/2 ML VIAL ONE (06:45)
[2021-05-16] MEDS ORDERED: NITROGLYCERIN/D5W 100MCG/ML 20ML SYR ONE (06:46)
[2021-05-16] MEDS ORDERED: LIDOCAINE 1% LOCAL 20 ML VIAL ONE (06:46)
[2021-05-16 07:12] LABS: BUN Creatinine Ratio 9.3 (10-20); Calcium 9.4 mg/dl (8.5-10.1); Creatinine Clr Calc Pharmacy 92.2 ml/min; Est GFR (African American) 125.7 ml/min; Est GFR (Non-African American) 108.5 ml/min; Potassium 4.4 mmol/L (3.5-5.1)
[2021-05-16 07:25] LABS: Hematocrit (blood only) 39.2 % (42-52); Hemoglobin 13.9 g/dL (14.0-18.0); Mean Corpuscular Hemoglobin 31.8 pg (25-34); Mean Corpuscular Hgb Conc 35.5 g/dL (32-36); Mean Corpuscular Volume 89.7 fL (80-100); Platelet Count 127 K/uL (130-400); Platelet Estimate Decreased (Normal); RDW Coefficient of Variation 12.8 % (11.5-14.5); RDW Standard Deviation 42.1 fL (36.4-46.3); Red Blood Count 4.37 M/uL (4.7-6.1)
[2021-05-16] MEDS ORDERED: ASPIRIN CHEW 324 MG PO STA (07:36)
--- NOTE | 2021-05-16 07:36 | Pre Anesthesia Assessment ---
Date of Service May 16, 2021 Pre Sedation Assessment Vital Signs Temp Pulse Pulse Pulse Resp BP BP 05/16/21 07:15 98 H 16 102/82 05/16/21 03:02 36.8 C 92 H 18 107/72 05/15/21 23:45 94 H 05/15/21 23:22 36.7 C 99 H 19 114/73 05/15/21 19:38 82 132/86 05/15/21 18:23 36.5 C 74 81 21 114/79 05/15/21 18:04 79 18 137/96 05/15/21 15:00 83 12 115/96 05/15/21 13:00 85 18 146/88 H 05/15/21 11:55 83 18 138/99 05/15/21 10:54 36.3 C L 94 H 16 145/88 H Pulse Ox 05/16/21 07:15 96 05/16/21 03:02 94 05/15/21 23:45 05/15/21 23:22 96 05/15/21 19:38 96 05/15/21 18:23 98 05/15/21 18:04 96 05/15/21 15:00 96 05/15/21 13:00 95 05/15/21 11:55 95 05/15/21 10:54 97 Cardiovascular + regular rate and + regular rhythm + S1 normal and + murmur (3/6 mid to late peaking systolic murmur); no S2 normal (diminished) + femoral pulses present and + radial pulses present; no JVD and no carotid bruit no edema Respiratory + respiratory effort normal; no respiratory distress + clear to auscultation bilaterally; no crackles, no rales, no rhonchi and no wheezes Pre-Sedation Airway Assessment Smoking Status: Current every day smoker Hx Sleep Apnea: No Short, Thick Neck: No Thyromental Distance: > or= 3.5 Finger Breadths Oral Cavity: + WNL Mallampati Class: III ASA: ASA3 NPO Status Date of Last Intake of Fluids: 05/16/21 Time of Last Intake of Fluids: 00:00 Date of Last Intake of Solid Food: 05/16/21 Time of Last Intake of Solid Foods: 00:00 Procedure Planning Contraindications for Sedation: none Current Medications Reviewed: Yes Notes The planned sedation has been discussed with the patient. Informed Consent was obtained. I have identified the patient, determined the appropriateness of sedation and have assessed the patient immediately prior to the procedure. All medicine(s) and interventions are by my order.
[2021-05-16] MEDS ORDERED: ASPIRIN 81 MG CHEW ONE (07:47)
[2021-05-16] MEDS ORDERED: FAMOTIDINE 20MG/5ML IV PUSH IV ONE (07:53)
--- NOTE | 2021-05-16 08:33 | Post Anesthesia Assessment ---
Date of Service May 16, 2021 Post Sedation Assessment Vital Signs Temp Pulse Pulse Pulse Resp BP BP 05/16/21 07:15 98 H 16 102/82 05/16/21 03:02 36.8 C 92 H 18 107/72 05/15/21 23:45 94 H 05/15/21 23:22 36.7 C 99 H 19 114/73 05/15/21 19:38 82 132/86 05/15/21 18:23 36.5 C 74 81 21 114/79 05/15/21 18:04 79 18 137/96 05/15/21 15:00 83 12 115/96 05/15/21 13:00 85 18 146/88 H 05/15/21 11:55 83 18 138/99 05/15/21 10:54 36.3 C L 94 H 16 145/88 H Pulse Ox 05/16/21 07:15 96 05/16/21 03:02 94 05/15/21 23:45 05/15/21 23:22 96 05/15/21 19:38 96 05/15/21 18:23 98 05/15/21 18:04 96 05/15/21 15:00 96 05/15/21 13:00 95 05/15/21 11:55 95 05/15/21 10:54 97 Recovery Score Activity: Moves 4 extremities Respiration: Deep Breath/Cough Circulation: +/-20% PreAnes Value Consciousness: Fully Awake Oxygen Saturation: > 92% On Room Air Discharge Sedation Level of Care: Phase I Post Sedation Plan On clinical assessment, the patient appears to have tolerated the sedation without complications. Patient is recovering as anticipated. Patient will continue to be monitored by nursing and may be discharged when sedation discharge criteria are met per below protocol. Upon Completions of procedure up to 15 minutes continue every 5 minute vital signs and the P.A.R. score; then discharge to a Phase I or Fast Track to Phase II per the following guidelines: * Discharge Patient to appropriate Phase II area if PAR is 8 or greater or return to pre- procedure baseline. The post - procedure orders will be as directed. * If PAR score is less than 8 or not return to pre-procedure baseline then patient will follow Phase I monitoring till PAR is reached for Phase II. The Phase I may be done in procedure room or may call to secure a Phase I area. * If naloxone or flumazenil are used for reversal, hold in Phase I for continued monitoring from when last reversal dose was given for a minimum of 60 minutes or longer pending the nurse and/or physician discretion of patient condition before discharge to Phase II. Please call the Sedation Physician to re-evaluate and complete post-note for discharge to Phase II area. Do NOT discharge from procedure sedation or Phase 1 until post- sedation evaluation note is complete by procedure /sedation MD Sedation Discharge Instructions to be given to the patient at discharge to home.
--- NOTE | 2021-05-16 08:34 | Cardiac Catheterization ---
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 Normal coronary arteries. Hemodynamics Rest Ao:: 91/67/92 Final Ao: 104/73/91 LV: N/A Recommendations Recommendations: Valve Replacement Specimens Specimens: None Radiation Exposure (mGy) 338 Contrast (mls) 50 Fluids (cc crystalloids) Fluids (cc crystalloids): 90 Nss Drains Drains: n/a Anesthesia Moderate sedation. Start 0808. End 0830. Sedation monitor: Lose RN Procedural Complication(s) None I attest to the content of the Intraoperative Record and any orders documented therein. Any exceptions are noted below. [facility] Data: Wood Turner Cardiac Status Clinical evaluation leading to the procedure 40-year-old patient with severe bioprosthetic aortic valve stenosis presents for cardiac catheterization prior to redo aortic valve replacement. CAD Presenation: Stable angina Imaging Studies Past 6 Months: No Coronary Anatomy Dominant: Left Left Main (% Stenosis): Normal LAD (% Stenosis): Normal D1 (% Stenosis): Normal D2 (% Stenosis): Normal Circumflex (% Stenosis): Normal OM1 (% Stenosis): Normal OM2 (% Stenosis): Normal OM3 (% Stenosis): Normal (Large vessel with ostial bifurcation) L PL1 (% Stenosis): Normal L PL2 (% Stenosis): Normal (Small vessel) L PDA (% Stenosis): Normal RCA (% Stenosis): Normal (Small nondominant vessel, subselective injection due to ostial vasospasm with 5 Belgian catheter.) Diagnostic Physicians Name: Nhan Greenberg DO Closure Device Percutaneous Entry Location: Radial Closure Device: Radial Band Recommendations: Valve Replacement Intraprocedure Events Significant Disection: No Perforation: No
[2021-05-16] MEDS ORDERED: FERROUS SULFATE 325 MG TAB PO SCH (09:00)
[2021-05-16] MEDS ORDERED: PATIENT'S OWN CONTROLLED MED 1 PO SCH (09:00)
[2021-05-16] MEDS ORDERED: METHADONE ORAL SOLN 2 MG/ML PO SCH ×2 (09:00)
[2021-05-16] MEDS ORDERED: ATENOLOL 25 MG TABLET PO SCH (09:00)
[2021-05-16] MEDS: busPIRone 5 MG TAB PO SCH (09:16)
[2021-05-16] MEDS: QUEtiapine FUMARATE 25 MG TABLET PO SCH (09:16)
[2021-05-16] MEDS: QUEtiapine FUMARATE 100 MG TABLET PO SCH (09:16)
--- NOTE | 2021-05-16 11:07 | Cardiology Progress Note ---
Date of Service May 16, 2021 Assessment & Plan (1) Prosthetic aortic valve stenosis: (2) Contrast media allergy: (3) Opioid dependence: Plan: (1) Prosthetic aortic valve stenosis: Chest pain improved, hemodynamically stable. Patient with some degree of anxiety, related to his recent diagnosis of recurrent aortic valve stenosis. Cardiac catheterization revealed angiographically normal coronary arteries. After patient completes the planned cardiac catheterization recovery interval for radial artery access, he is stable for discharge. Patient is to keep the tentative appointment on 05/19/2021 at [facility] for a gated CT of the chest for visualization of the thoracic aorta. This is a noncontrast study given his history of contrast allergy. We will perform the study at [facility], as EKG gating allows for better visualization of the aortic root. Patient has already had his teeth removed prior to his previous aortic valve surgery, so he does not need to see a dental professional in advance of CT surgery consultation. I called Dr. Potter of [facility] [place] surgery yesterday and discussed pt's case. CT surgery office to reach out to patient to schedule upcoming outpatient consultation. Patient stable for discharge and was prior to hospital medication. (2) Contrast media allergy: Patient received appropriate prophylaxis with prednisone and Benadryl. Tolerated procedure well. (3) Opioid dependence: Continue outpatient treatment with buspirone, Lexapro, Seroquel, and methadone as per outpatient regimen. Followed by [facility]. Admission and Anticipated Discharge Date Admission Date: May 15, 2021 Subjective Patient seen in cardiology follow-up post procedure. Cardiac catheterization went well, angiographically normal coronary arteries. Patient tolerated the procedure well. He is eager for discharge. Physical Exam Constitutional: WD/WN, vitals as above Respiratory: normal respiratory effort, lungs clear to auscultation Cardiovascular: Rate/Rhythm: regular rate and regular rhythm Heart Sounds: + murmur (2/6 systolic murmur) Extremities: no edema Gastrointestinal (Abdomen): normal bowel sounds, soft, nontender, no hepatosplenomegaly Neurologic: PERRL, EOMI, accommodation nl, no face palsy, no dysarthria Results & Data ([facility]) Vital Signs (Past 12 Hours) Vital Signs Temp Pulse Pulse Pulse Resp BP Pulse Ox 05/16/21 09:29 36.6 C 88 18 118/80 96 05/16/21 09:14 36.6 C 92 H 19 106/73 96 05/16/21 08:50 96 H 20 123/74 96 05/16/21 08:35 94 H 20 114/83 96 05/16/21 07:15 98 H 16 102/82 96 05/16/21 03:02 36.8 C 92 H 18 107/72 94 05/15/21 23:45 94 H 05/15/21 23:22 36.7 C 99 H 19 114/73 96 Laboratory Results Cardiac Enzymes 05/15/21 05/15/21 05/16/21 Range/Units 11:09 18:39 00:31 AST 36 (13-39) U/L Troponin I < 0.03 < 0.03 < 0.03 (0-0.04) ng/ml CBC 05/15/21 05/16/21 Range/Units 11:09 05:57 WBC 7.65 4.70 L (4.8-10.8) K/uL RBC 4.59 L 4.37 L (4.7-6.1) M/uL Hgb 14.6 13.9 L (14.0-18.0) g/dL Hct 41.5 L 39.2 L (42-52) % Plt Count 134 127 L (130-400) K/uL Neut # (Auto) 5.33 (1.4-6.5) K/uL Lymph # (Auto) 1.57 (1.2-3.4) K/uL [place]lin # (Auto) 0.59 (0.11-0.59) K/uL Eos # (Auto) 0.14 (0-0.5) K/uL Baso # (Auto) 0.01 (0-0.2) K/uL Comprehensive Metabolic Panel 05/15/21 05/16/21 Range/Units 11:09 05:57 Sodium 140 139 (136-145) mmol/L Potassium 3.5 4.4 D (3.5-5.1) mmol/L Chloride 105 108 H (98-107) mmol/L Carbon Dioxide 29 26 (21-32) mmol/L BUN 5 L 8 (6-23) mg/dl Creatinine 0.88 0.86 (0.6-1.4) mg/dl Glucose 97 141 H (70-99(Fasting)) mg/dl Calcium 9.6 9.4 (8.5-10.1) mg/dl AST 36 (13-39) U/L ALT 19 (7-52) U/L Alkaline Phosphatase 93 (34-104) U/L Total Protein 7.7 (6.0-8.3) gm/dl Albumin 4.7 (3.4-5.0) gm/dl
[2021-05-16] MEDS: PANTOprazole 40 MG TAB PO SCH (11:27)
--- NOTE | 2021-05-16 12:09 | Discharge Summary ---
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 Patient states that he was sitting in his car this morning when he had sudden onset of a midsternal chest pain that radiated over to the left side of his chest. States that he was unable to take a deep breath. Patient reports episodes of chest pain in the past however not this severe. Patient denies lightheadedness, dizziness, diaphoresis, syncopal events. No abdominal pain, nausea, vomiting, diarrhea. Denies any other recent illnesses, fevers, chills. No urinary symptoms. In the ED, EKG is abnormal however unchanged from prior. Initial troponin is negative. Patient is hemodynamically stable. Patient received Ativan with improvement in his symptoms. Admission Exam Per Admitting Provider Constitutional: WD/WN, vitals as above Eyes: PERRL, conjunctivae normal, anicteric sclerae ENMT: external ear and nose normal, oropharynx normal Respiratory: normal respiratory effort, lungs clear to auscultation Cardiovascular: Rate/Rhythm: regular rate and regular rhythm Heart Sounds: + murmur (Systolic, grade 5/6) Vessels: normal peripheral pulses Extremities: no edema Gastrointestinal (Abdomen): normal bowel sounds, soft, nontender, no hepatosplenomegaly Musculoskeletal: no cyanosis or clubbing, extremities motor strength 5/5 Skin: no rashes, warm and dry B Neurologic: PERRL, EOMI, accommodation nl, no face palsy, no dysarthria Psychiatric: A+Ox3, euthymic affect Principal Diagnosis Chest pain Prosthetic aortic valve stenosis: Contrast media allergy: Opioid dependence: Discharge Exam General- No acute distress Head- atraumatic Eyes- PERRL, EOMI, ENT- oropharynx clear Neck- supple, no JVD Lungs- clear to auscultation Heart- regular rhythm; + murmur (Systolic, grade 5/6) Vessels: normal peripheral pulses Extremities: no edema Abdomen- normal bowel sounds, soft, nontender Extremities- no calf tenderness Neuro- alert, oriented x 3; PERRL, EOMI; no facial palsy; no dysarthria Skin- warm & dry Discharge Data Allergies Allergy/AdvReac Type Severity Reaction Status Date / Time codeine Allergy Severe SHORTNESS Verified 05/15/21 12:45 OF BREATH ketorolac Allergy Mild RAPID Verified 05/15/21 12:45 BREATHING morphine Allergy Mild FEELING Verified 05/15/21 12:45 ANXIOUS Iodinated Contrast Media Allergy Unknown RASH-CAN Verified 05/15/21 12:45 EAT SHELLFISH Consultations 05/15/21 18:19 Consult Cardiology Routine Procedures Performed Operation Date: 05/16/21 07:30 Actual Procedures p Cath, Coronaries ONLY (no LV) - Nhan Greenberg DO s Cineradiography w/Routine Exam - Nhan Greenberg DO Ordered Studies 05/16/21 06:28 CL Cath Imgs for PACS use only Routine XR chest 1V portable CLINICAL HISTORY: Atypical chest pain TECHNIQUE: Single frontal radiograph of the chest was obtained. Comparison: Comparison is made to rib series 06/11/2019 FINDINGS: Median sternotomy wires are unchanged. The cardiomediastinal silhouette is normal. The lungs are clear. No evidence of pleural effusion or pneumothorax. IMPRESSION: No acute chest disease. ACT 112: Negative or not required by law. Electronically signed by: Branden Hart M.D. 05/15/2021 11:40 AM Dictated:05/15/21 1137 Transcribed: 05/15/21 1137 Cardiac Cath Procedure Full Procedure Date May 16, 2021 Pre-Procedure Diagnosis Pre-Procedure Diagnosis: Valvular Disease (History of bicuspid aortic valve with severe bioprosthetic aortic valve stenosis) AUC Score AUC Score: 7 Post-Procedure Diagnosis Post-Procedure Diagnosis: Normal Coronary Arteries Procedure(s) Performed Procedure(s) Performed: Coronary Angiography Regional Extension Service Specialist Nhan Greenberg DO Float Remover(s) Lab Nurse LIFE SKILLS EDUCATOR Estimated Blood Loss Estimated Blood Loss: 5cc Medication(s) Medication(s): Fentanyl, Heparin, Lidocaine 1%, Nicardipine, Nitroglycerin and Versed Summary of Findings Left dominant coronary anatomy. Normal coronary arteries. Hemodynamics Rest Ao:: 91/67/92 Final Ao: 104/73/91 LV: N/A Recommendations Recommendations: Valve Replacement Specimens Specimens: None Radiation Exposure (mGy) 338 Contrast (mls) 50 Fluids (cc crystalloids) Fluids (cc crystalloids): 90 Nss Drains Drains: n/a Anesthesia Moderate sedation. Start 0808. End 0830. Sedation monitor: Eugene RN Procedural Complication(s) None I attest to the content of the Intraoperative Record and any orders documented therein. Any exceptions are noted below. [facility] Data: Store Coordinator Cardiac Status Clinical evaluation leading to the procedure 40-year-old patient with severe bioprosthetic aortic valve stenosis presents for cardiac catheterization prior to redo aortic valve replacement. CAD Presenation: Stable angina Imaging Studies Past 6 Months: No Coronary Anatomy Dominant: Left Left Main (% Stenosis): Normal LAD (% Stenosis): Normal D1 (% Stenosis): Normal D2 (% Stenosis): Normal Circumflex (% Stenosis): Normal OM1 (% Stenosis): Normal OM2 (% Stenosis): Normal OM3 (% Stenosis): Normal (Large vessel with ostial bifurcation) L PL1 (% Stenosis): Normal L PL2 (% Stenosis): Normal (Small vessel) L PDA (% Stenosis): Normal RCA (% Stenosis): Normal (Small nondominant vessel, subselective injection due to ostial vasospasm with 5 Frisian catheter.) Diagnostic Physicians Name: Nhan Greenberg DO Closure Device Percutaneous Entry Location: Radial Closure Device: Radial Band Recommendations: Valve Replacement Intraprocedure Events Significant Disection: No Perforation: No Created/Dictated:05/16/21832 Transcribed: 05/16/21832 Hospital Course (1) Retrosternal chest pain: (2) Contrast media allergy: Patient presenting from home with reports of midsternal chest pain. History of aortic valve stenosis s/p bioprosthetic replacement x2 in 2004 and 2014. 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 In the ED, patient received Ativan with improvement in his symptoms. EKG abnormal however unchanged from prior, initial troponin negative Was tentatively planned for outpatient preop cardiac catheterization in the next few days, but cath done during this admission Due to contrast dye allergy, prednisone and diphenhydramine ordered per cardiology recommendations S/P cath today showed Normal coronary arteries. Ok from cardiology to proceed with valve replacement Stable from cardiology standpoint to discharge home today (3) Prosthetic aortic valve stenosis: Follow up with CT surgeon Plan for CT chest on 05/19/21 at [facility] for a gated CT of the chest for visualization of the thoracic aorta. Ok from cardiology to proceed with valve replacement (4) Opioid dependence: On methadone, dose confirmed with clinic ([facility]) Anxiety Continue buspirone, Lexapro Will give a few tabs of Ativan due to increase anxiety for his upcoming heart valve surgery Pt was advised not to drive or operate any machine after taking the Ativan Please hold the next dose of Ativan if you become drowsy or lethargy Do not take the Ativan after taking any Opioid due to risk of drowsiness, lethargy or unresponsiveness Contrast media allergy: Patient received appropriate prophylaxis with prednisone and Benadryl. Tolerated procedure well. (5) HTN (hypertension): Continue atenolol (6) DVT prophylaxis: SCDs Total Time Total Time Spent Total Time Spent (In Minutes): 35 minutes Discharge Plan Discharge Items Patient Disposition: Home - Self-Care Reason For Visit: CHEST PAIN Discharge Diagnosis: Chest pain Prosthetic aortic valve stenosis Activity: Resume your previous activity Non-emergency contact: Primary Care Provider and Regional Extension Service Specialist Call non-emergency contact if: you have any medication questions and your symptoms worsen Follow-up/Referrals: Janell De La Fuente, [Primary Care Provider] - Diet: Heart Healthy Addtl Attending Provider Instructions: Follow up with your primary care provider Dr. De La Fuente within 1 week Follow up with your cardiology Please do not drive or operate any machine after taking the Ativan Please hold the next dose of Ativan if you become drowsy or lethargy Do not take the Ativan after taking any Opioid due to risk of drowsiness, lethargy or unresponsiveness ACTIVITY RECOMMENDATIONS: Excess manipulation of the wrist should be avoided for the next 24-48 hours. * No lifting over 2 pounds (approximately a 1/2 gallon of milk) with the utilized arm for 24 hours. * No strenuous activity such as bowling or tennis for 3 days. * Keep the site of the procedure covered with a bandage for 24 hours. *You may shower the day after the procedure. Do not take a tub bath or submerge the puncture site in water for the next 3 days. *Do not operate any motorized equipment for 3 days. SPECIAL CARE INSTRUCTIONS: The site may be slightly bruised and sore following your procedure. Should any of the following occur, contact the DrShay who performed your procedure. 1. Redness/inflammation, swelling, chills, or fever, or colored drainage at procedure site within 3-7 days after your procedure. 2. Coldness, discoloration, ongoing numbness, severe pain, or swelling. Expect mild tingling of hand and tenderness at the puncture site for up to three days. If this persists beyond three days, or other symptoms develop, notify the DrShay who performed your procedure. BLEEDING: If the procedure site on your wrist begins to bleed, do not panic 1. Place 1 or 2 fingers firmly just slightly above the insertion site to stop the bleeding. You may be able to feel your pulse as you hold pressure. 2. Lift your finger after 5 minutes to see if the bleeding has stopped. 3. Once the bleeding has stopped, gently wipe the wrist area clean with a bandage. * If the bleeding from your wrist does not stop after 10 minutes, or if there is a large amount of bleeding or spurting, call 911 (do not drive yourself to the hospital). SKIN IRRITATION: * You may experience some redness and/or swelling in the area where radiation was administered. If any skin irritation occurs, please contact your family physician. FOLLOW UP VISIT: Keep any scheduled doctor appointments. 05/19/2021, 1:15 pm: Radiology, Bucky Persaud,Gated noncontrast CT of the chest /thoracic aorta Cardiothoracic surgery consultation tentatively planned , CT surgery office to call patient to schedule. 08/14/2021: 12:45 PM arrival time for 1 PM appointment, follow-up with Dr Marshall. Pending Studies at Discharge: No Stand-Alone Forms: My [facility], Smoking Cessation Medications and DC Order Prescriptions: New lorazepam [Ativan] 0.5 mg tablet 0.5 mg PO DAILY PRN (Reason: anxiety) Qty: 6 RF: 0 Continued quetiapine 25 mg tablet 25 mg PO BID RF: 0 atenolol 25 mg tablet 12.5 mg PO QAM RF: 0 quetiapine 100 mg tablet 100 mg PO BID RF: 0 ferrous sulfate [FeroSul] 325 mg (65 mg iron) tablet 325 mg PO QAM RF: 0 buspirone 10 mg tablet 10 mg PO TID RF: 0 hydroxyzine HCl 25 mg tablet 25 mg PO TID PRN (Reason: Anxiety) RF: 0 escitalopram oxalate 20 mg tablet 20 mg PO HS RF: 0 multivitamin Tablet 1 tab PO DAILY RF: 0 omeprazole 20 mg capsule,delayed release(DR/EC) 20 mg PO BID RF: 0 methadone 5 mg/5 mL Solution 59 mg PO DAILY RF: 0 Discharge Orders: Discharge Order (Routine); Ordered 05/16/21 Ordered By: Teja Astudillo Admission Data Admit Date/Time: 05/15/21 14:28 Attending Provider: Teja Astudillo Admit Provider: Lianna Silver Primary Care Provider: Janell De La Fuente Other Providers: Jacky Marshall ; Lianna Silver
--- NOTE | 2021-05-16 13:31 | Electrocardiogram Report ---
Test Reason : Blood Pressure : / mmHG Vent. Rate : 080 BPM Atrial Rate : 080 BPM P-R Int : 162 ms QRS Dur : 094 ms QT Int : 422 ms P-R-T Axes : 067 -28 092 degrees QTc Int : 486 ms Normal sinus rhythm Possible Left atrial enlargement Left ventricular hypertrophy Abnormal ECG When compared with ECG of 15-MAY-2021 10:59, No significant change was found Confirmed by Abran Montejo ([id number]) on 05/16/2021 1:31:25 PM Referred By: REFERRED SELF Confirmed By:Eliazar Montejo
== END 2021-05-16 13:35 | disposition home or self-care (01) | DRG 287 ==
LOC: ED 10:51 → SUATTDRO 14:28 → 2S 14:28
PROC: CLB.CCO (2021-05-16 07:30)